=== PATIENT | male | born 1990 | race Caucasian/White ===

== ENCOUNTER 2017-05-12 00:33 | Emergency (ER) | payer OTHER ==
[~2017-05-12] VITALS: Ht 172.7 cm; Wt 94.3 kg
[2017-05-12 00:39] VITALS: Ht 172.7 cm; Wt 94.3 kg
[2017-05-12 02:42] VITALS: BP 121/76
== END 2017-05-12 02:42 | disposition home or self-care (01) ==
LOC: ED 00:33
DX: S62.352A Nondisplaced fracture of shaft of third metacarpal bone, right hand, initial encounter for closed fracture (principal); W22.01XA Walked into wall, initial encounter; Y93.89 Activity, other specified; Y92.89 Other specified places as the place of occurrence of the external cause; Y99.8 Other external cause status
CPT/HCPCS: J1885; Q0092

== ENCOUNTER 2017-11-30 22:10 | Emergency (ER) | payer OTHER ==
[~2017-11-30] VITALS: Ht 170.2 cm; Wt 100.2 kg
[2017-11-30 22:12] VITALS: BP 142/88; Ht 170.2 cm; Wt 100.2 kg
== END 2017-11-30 22:39 | disposition home or self-care (01) ==
LOC: ED 22:10
DX: M23.92 Unspecified internal derangement of left knee (principal)
CPT/HCPCS: J1885

== ENCOUNTER 2018-05-27 01:53 | Emergency (ER) | payer OTHER ==
[~2018-05-27] VITALS: Ht 172.7 cm; Wt 102.1 kg
[2018-05-27 02:04] VITALS: Ht 172.7 cm; Wt 102.1 kg
[2018-05-27 04:13] VITALS: BP 110/62
== END 2018-05-27 04:13 | disposition home or self-care (01) ==
LOC: ED 01:53
DX: M25.531 Pain in right wrist (principal); S50.01XA Contusion of right elbow, initial encounter; V29.9XXA Motorcycle rider (driver) (passenger) injured in unspecified traffic accident, initial encounter; Y93.I9 Activity, other involving external motion; Y92.488 Other paved roadways as the place of occurrence of the external cause; Y99.8 Other external cause status
CPT/HCPCS: J1885; J2270

== ENCOUNTER 2020-04-18 21:29 | Emergency (ER) | payer OTHER ==
[~2020-04-18] VITALS: Ht 172.7 cm; Wt 108.9 kg
[2020-04-18 22:10] VITALS: BP 127/76; Ht 172.7 cm; Wt 108.9 kg
== END 2020-04-19 00:30 | disposition home or self-care (01) ==
LOC: ED 21:29
DX: M25.531 Pain in right wrist (principal)